=== PATIENT | female | born 1990 | race Caucasian/White ===

== ENCOUNTER 2020-03-24 23:40 | Inpatient (IN) | payer MEDICAID ==
[2020-03-25] MEDS ORDERED: Nalbuphine 10 MG/ML Syringe IVPUSH PRN (00:20)
[2020-03-25] MEDS ORDERED: Ondansetron 4 MG/2 ML SDV IVPUSH PRN (00:20)
[2020-03-25] MEDS ORDERED: Ampicillin 2 GM in Sodium Chloride 0.9% 100 ML IV ONE (00:20)
[2020-03-25] MEDS ORDERED: Sodium Chloride 0.9% 10 ML Syringe FLUSH PRN (00:20)
[2020-03-25] MEDS ORDERED: Oxytocin/Lactated Ringers 10 UNIT/1,000 ML BAG IV SCH ×2 (00:30)
[2020-03-25] MEDS: Lactated Ringers 1,000 ML IV SCH ×2 (01:05→11:18)
[2020-03-25] MEDS: Ampicillin 1 GM in Sodium Chloride 0.9% 100 ML IV SCH ×4 (05:02→18:05)
--- NOTE | 2020-03-25 07:55 | PCM.PREANE ---
Preanesthetic Assessment - Procedure Proposed Procedure: kash - Anesthesia/Transfusion/Family Hx Anesthesia History: Prior Anesthesia Without Reaction Family History of Anesthesia Reaction: No Transfusion History: No Prior Transfusion(s) - Review of Systems General: No Symptoms Pulmonary: No Symptoms Cardiovascular: No Symptoms Gastrointestinal: No Symptoms Neurological: No Symptoms Other: Reports: None - Physical Assessment Vital Signs: Last Vital Signs Temp 98.6 F 03/24/20 23:59 Pulse Resp 16 03/24/20 23:59 BP 129/73 03/24/20 23:59 Pulse Ox 99 03/24/20 23:59 Height: 5 ft 4 in Weight: 78.018 kg ASA Class: 2 Mental Status: Alert & Oriented x3 Airway Class: Mallampati = 1 Dentition: Reports: Normal Dentition Thyro-Mental Finger Breadths: 3 Mouth Opening Finger Breadths: 3 ROM/Head Extension: Full Lungs: Clear to Auscultation, Normal Respiratory Effort Cardiovascular: Regular Rate, Regular Rhythm - Lab Values: Laboratory Last Values WBC 8.45 K/mm3 (3.98-10.04) 03/25/20 00:35 RBC 3.37 M/mm3 (3.98-5.22) L 03/25/20 00:35 Hgb 9.9 gm/dl (11.2-15.7) L 03/25/20 00:35 Hct 30.4 % (34.1-44.9) L 03/25/20 00:35 MCV 90.2 fl (79.4-94.8) 03/25/20 00:35 MCH 29.4 pg (25.6-32.2) 03/25/20 00:35 MCHC 32.6 g/dl (32.2-35.5) 03/25/20 00:35 RDW Std Deviation 40.7 fL (36.4-46.3) 03/25/20 00:35 Plt Count 257 K/mm3 (182-369) 03/25/20 00:35 MPV 9.3 fl (9.4-12.3) L 03/25/20 00:35 Urine Color Yellow (Yellow) 03/25/20 00:05 Urine Appearance Clear (Clear) 03/25/20 00:05 Urine pH 7.0 (5.0-8.0) 03/25/20 00:05 Ur Specific [place] 1.015 (1.005-1.030) 03/25/20 00:05 Urine Protein Trace (Negative) H 03/25/20 00:05 Urine Glucose (UA) Negative (Negative) 03/25/20 00:05 Urine Ketones Negative (Negative) 03/25/20 00:05 Urine Occult Blood Trace-lysed (Negative) H 03/25/20 00:05 Urine Nitrite Negative (Negative) 03/25/20 00:05 Urine Bilirubin Negative (Negative) 03/25/20 00:05 Urine Urobilinogen 0.2 (0.2-1.0) 03/25/20 00:05 Ur Leukocyte Esterase 1+ (Negative) H 03/25/20 00:05 Urine RBC 0-5 /hpf (0-5) 03/25/20 00:05 Urine WBC 5-10 /hpf (0-5) H 03/25/20 00:05 Ur Squamous Epith Cells 10-20 /hpf (0-5) H 03/25/20 00:05 Urine Bacteria Few /hpf (FEW) 03/25/20 00:05 Urine Mucus Rare /hpf (FEW) 03/25/20 00:05 Membrane Rupture Positive H 03/25/20 00:05 Blood Type A POSITIVE 03/25/20 00:35 Gel Antibody Screen Negative 03/25/20 00:35 - Allergies Allergies/Adverse Reactions: Allergies Allergy/AdvReac Type Severity Reaction Status Date / Time No Known Allergies Allergy Verified 03/24/20 23:57 - Blood Blood Available: No - Acknowledgements Anesthesia Type Planned: Epidural Pt an Appropriate Candidate for the Planned Anesthesia: Yes Alternatives and Risks of Anesthesia Discussed w Pt/Guardian: Yes Pt/Guardian Understands and Agrees with Anesthesia Plan: Yes PreAnesthesia Questionnaire HEENT History: Reports: None Cardiovascular History: Reports: None Respiratory History: Reports: None Gastrointestinal History: Reports: None Genitourinary History: Reports: None HEAD LOADER History: Reports: None : 1 Para: 0 Musculoskeletal History: Reports: None Neurological History: Reports: None Psychiatric History: Reports: None Endocrine/Metabolic History: Reports: None Hematologic History: Reports: None Immunologic History: Reports: None Oncologic (Cancer) History: Reports: None Dermatologic History: Reports: None - Infectious Disease History Infectious Disease History: Reports: Chicken Pox Other Infectious Disease History: Pt had chicken pox as a child - Past Surgical History Head Surgeries/Procedures: Reports: None HEENT Surgical History: Reports: Oral Surgery Female Surgical History: Reports: Cervical Conization - SUBSTANCE USE Smoking Status *Q: Former Smoker (quit 9 months ago) Tobacco Use Within Last Twelve Months: Cigarettes Second Hand Smoke Exposure: No Days Per Week of Alcohol Use: 0 Recreational Drug Use History: No - HOME MEDS Home Medications: Home Meds Pnv No.95/Ferrous Fum/Folic AC [ Vitamin Tablet] 1 tab PO DAILY 03/25/20 [History] - CURRENT (IN HOUSE) MEDS Current Meds: Current Medications Lactated Ringer's (Ringers, Lactated) 1,000 mls @ 100 mls/hr IV ASDIRECTED MARIE Last Admin: 03/25/20 01:05 Dose: 100 mls/hr Documented by: Ampicillin Sodium 1 gm/ Sodium (Chloride) 100 mls @ 200 mls/hr IV Q4H MARIE Last Admin: 03/25/20 05:02 Dose: 200 mls/hr Documented by: Oxytocin/Lactated Ringer's (Pitocin In Lr 10 Units/1,000 Ml) 10 unit in 1,000 mls @ 100 mls/hr IV .CONTINUOUS MARIE Oxytocin/Lactated Ringer's (Pitocin In Lr 10 Units/1,000 Ml) 10 unit in 1,000 mls @ 12 mls/hr IV TITRATE MARIE; Protocol Last Titration: 03/25/20 07:14 Dose: 16 munits/min, 96 mls/hr Documented by: Nalbuphine HCl (Nubain) 10 mg IVPUSH Q2H PRN PRN Reason: Pain Last Admin: 03/25/20 03:41 Dose: 10 mg Documented by: Ondansetron HCl (Zofran) 4 mg IVPUSH Q4H PRN PRN Reason: Nausea/Vomiting Sodium Chloride (Saline Flush) 10 ml FLUSH ASDIRECTED PRN PRN Reason: Keep Vein Open Discontinued Medications Ampicillin Sodium 2 gm/ Sodium (Chloride) 100 mls @ 200 mls/hr IV ONETIME ONE Stop: 03/25/20 00:49 Last Admin: 03/25/20 01:05 Dose: 200 mls/hr Documented by:
[2020-03-25] MEDS ORDERED: fentaNYL 100 MCG/2 ML SDV EPIDUR PRN (08:01)
[2020-03-25] MEDS ORDERED: ePHEDrine 50 MG/ML SDV IVPUSH PRN (08:01)
[2020-03-25] MEDS ORDERED: diphenhydrAMINE 50 MG/ML SDV IVPUSH PRN (08:01)
--- NOTE | 2020-03-25 08:54 | PCM.LDHP ---
L&D History of Present Illness - General Date of Service: 03/24/20 Admit Problem/Dx: Patient Status Order with Admit Dx/Problem 03/24/20 23:57 Patient Status [ADT] Routine 03/25/20 03:03 Admission Status [Patient Status] [ADT] Routine Admission Diagnosis/Problem Admission Diagnosis/Problem Source of Information: Patient History Limitations: Reports: No Limitations - History of Present Illness Introduction:: 30-year-old 1 para 0 at 36 weeks 3 days preventive presents complaining of rupture [id number] 1 para 0 at 36 weeks 3 days. Presents complaining of rupture of membranes at 10 PM. AmniSure found to be positive and patient was admittedAmnio sure found to be positive and patient was admitted Associated Symptoms: Reports: vaginal fluid - Related Data Allergies/Adverse Reactions: Allergies Allergy/AdvReac Type Severity Reaction Status Date / Time No Known Allergies Allergy Verified 03/24/20 23:57 Home Medications: Home Meds Pnv No.95/Ferrous Fum/Folic AC [ Vitamin Tablet] 1 tab PO DAILY 03/25/20 [History] Past Medical History HEENT History: Reports: None Cardiovascular History: Reports: None Respiratory History: Reports: None Gastrointestinal History: Reports: None Genitourinary History: Reports: None MILL HAND History: Reports: None Musculoskeletal History: Reports: None Neurological History: Reports: None Psychiatric History: Reports: None Endocrine/Metabolic History: Reports: None Hematologic History: Reports: None Immunologic History: Reports: None Oncologic (Cancer) History: Reports: None Dermatologic History: Reports: None - Infectious Disease History Infectious Disease History: Reports: Chicken Pox Other Infectious Disease History: Pt had chicken pox as a child - Past Surgical History Head Surgeries/Procedures: Reports: None HEENT Surgical History: Reports: Oral Surgery Female Surgical History: Reports: Cervical Conization Social & Family History - Family History Family Medical History: Noncontributory - Tobacco Use Smoking Status *Q: Former Smoker (quit 9 months ago) Second Hand Smoke Exposure: No - Alcohol Use Days Per Week of Alcohol Use: 0 - Recreational Drug Use Recreational Drug Use: No H&P Review of Systems - Review of Systems: Review Of Systems: See Below General: Reports: No Symptoms HEENT: Reports: No Symptoms Pulmonary: Reports: No Symptoms Cardiovascular: Reports: No Symptoms Gastrointestinal: Reports: No Symptoms Genitourinary: Reports: No Symptoms Musculoskeletal: Reports: No Symptoms Skin: Reports: No Symptoms Psychiatric: Reports: No Symptoms Neurological: Reports: No Symptoms Hematologic/Lymphatic: Reports: No Symptoms Immunologic: Reports: No Symptoms L&D Exam - Exam Exam: See Below - Vital Signs Vital Signs: Last Vital Signs Temp 37.0 C 03/24/20 23:59 Pulse Resp 16 03/24/20 23:59 BP 129/73 03/24/20 23:59 Pulse Ox 99 03/24/20 23:59 Weight: 78.018 kg - OB Specific Contraction Intensity: Irritability Movement: Active Heart Tones: Present Heart Rate (FHR) Variability: Moderate (6-25 bmp) Presentation: Vertex - Ann Score Ann Score Cervix Position: Posterior Ann Score Consistency: Soft Ann Score Effacement: >80% Ann Score Dilation: 3-4 cm Ann Score 's Station: -3 Ann Score Total: 7 - Exam General: Alert, Oriented HEENT: PERRLA, Conjunctiva Clear, EACs Clear, EOMI, Hearing Intact, Mucosa Moist & [place], Nares Patent, Normal Nasal Septum, Posterior Pharynx Clear, TMs Clear Neck: Supple, Trachea Midline Lungs: Clear to Auscultation, Normal Respiratory Effort Cardiovascular: Regular Rate, Regular Rhythm GI/Abdominal Exam: Normal Bowel Sounds, Soft, Non-Tender, No Organomegaly, No Distention, No Abnormal Bruit, No Mass, Pelvis Stable Genitourinary: Normal external exam Back Exam: Normal Inspection, Full Range of Motion Extremities: Normal Inspection, Normal Range of Motion, Non-Tender, No Pedal Edema, Normal Capillary Refill Skin: Warm, Dry, Intact Neurological: Cranial Nerves Intact, Reflexes Equal Bilateral Psychiatric: Alert, Normal Affect, Normal Mood - Patient Data Lab Results Last 24 hrs: Laboratory Results - last 24 hr 03/25/20 03/25/20 03/25/20 Range/Units 00:05 00:05 00:35 WBC 8.45 (3.98-10.04) K/mm3 RBC 3.37 L (3.98-5.22) M/mm3 Hgb 9.9 L (11.2-15.7) gm/dl Hct 30.4 L (34.1-44.9) % MCV 90.2 (79.4-94.8) fl MCH 29.4 (25.6-32.2) pg MCHC 32.6 (32.2-35.5) g/dl RDW Std Deviation 40.7 (36.4-46.3) fL Plt Count 257 (182-369) K/mm3 MPV 9.3 L (9.4-12.3) fl Urine Color Yellow (Yellow) Urine Appearance Clear (Clear) Urine pH 7.0 (5.0-8.0) Ur Specific [place] 1.015 (1.005-1.030) Urine Protein Trace H (Negative) Urine Glucose (UA) Negative (Negative) Urine Ketones Negative (Negative) Urine Occult Blood Trace-lysed H (Negative) Urine Nitrite Negative (Negative) Urine Bilirubin Negative (Negative) Urine Urobilinogen 0.2 (0.2-1.0) Ur Leukocyte Esterase 1+ H (Negative) Urine RBC 0-5 (0-5) /hpf Urine WBC 5-10 H (0-5) /hpf Ur Squamous Epith Cells 10-20 H (0-5) /hpf Urine Bacteria Few (FEW) /hpf Urine Mucus Rare (FEW) /hpf Membrane Rupture Positive H Blood Type Gel Antibody Screen 03/25/20 Range/Units 00:35 WBC (3.98-10.04) K/mm3 RBC (3.98-5.22) M/mm3 Hgb (11.2-15.7) gm/dl Hct (34.1-44.9) % MCV (79.4-94.8) fl MCH (25.6-32.2) pg MCHC (32.2-35.5) g/dl RDW Std Deviation (36.4-46.3) fL Plt Count (182-369) K/mm3 MPV (9.4-12.3) fl Urine Color (Yellow) Urine Appearance (Clear) Urine pH (5.0-8.0) Ur Specific [place] (1.005-1.030) Urine Protein (Negative) Urine Glucose (UA) (Negative) Urine Ketones (Negative) Urine Occult Blood (Negative) Urine Nitrite (Negative) Urine Bilirubin (Negative) Urine Urobilinogen (0.2-1.0) Ur Leukocyte Esterase (Negative) Urine RBC (0-5) /hpf Urine WBC (0-5) /hpf Ur Squamous Epith Cells (0-5) /hpf Urine Bacteria (FEW) /hpf Urine Mucus (FEW) /hpf Membrane Rupture Blood Type A POSITIVE Gel Antibody Screen Negative Result Diagrams: 03/25/20 00:35 Problem List Initiated/Reviewed/Updated: Yes Orders Last 24hrs: Active Orders 24 hr Category Date Time Status Admission Status [Patient Status] [ADT] Routine ADT 03/25/20 03:03 Active Patient Status [ADT] Routine ADT 03/24/20 23:57 Active Activity as Tolerated [RC] PFP Care 03/25/20 00:20 Active Communication Order [RC] ASDIRECTED Care 03/25/20 00:20 Active Heart Tones [RC] ASDIRECTED Care 03/25/20 00:21 Active Non Stress Test [RC] PER UNIT ROUTINE Care 03/24/20 23:57 Active Non Stress Test [RC] PER UNIT ROUTINE Care 03/25/20 00:20 Active Notify Provider [RC] ASDIRECTED Care 03/25/20 08:01 Active Notify Provider [RC] PFP Care 03/25/20 00:20 Active Notify Provider [RC] PRN Care 03/25/20 00:20 Active Peripheral IV Care [RC] . DIRECTED Care 03/25/20 00:21 Active Vital Signs [RC] 09,15,21,03 Care 03/24/20 23:57 Active Vital Signs [RC] PER UNIT ROUTINE Care 03/25/20 00:20 Active Regular Diet [DIET] Diet 03/25/20 Breakfast Active GROUP B STREP BY PCR [MOLEC] Stat Lab 03/25/20 00:50 Received PATIENT RETYPE [BBK] Routine Lab 03/25/20 01:23 Ordered RAPID PLASMA REAGIN,RPR [CHEM] Routine Lab 03/25/20 00:35 Received Ampicillin 1 gm Med 03/25/20 05:00 Active Sodium Chloride 0.9% [Normal Saline] 100 ml IV Q4H Bupivacaine/fentaNYL/NS [fentaNYL/Bupivacaine/NS 2 MCG- Med 03/25/20 08:01 Active 0.125% 100 ML] 100 ml EPIDUR ASDIRECTED PRN Lactated Ringers [Ringers, Lactated] 1,000 ml Med 03/25/20 00:30 Active IV ASDIRECTED Nalbuphine [Nubain] Med 03/25/20 00:20 Active 10 mg IVPUSH Q2H PRN Ondansetron [Zofran] Med 03/25/20 00:20 Active 4 mg IVPUSH Q4H PRN Oxytocin/Lactated Ringers [Pitocin in LR 10 Units/1,000 Med 03/25/20 00:30 Active ML] 10 unit in 1,000 ml IV .CONTINUOUS Oxytocin/Lactated Ringers [Pitocin in LR 10 Units/1,000 Med 03/25/20 00:30 Active ML] 10 unit in 1,000 ml IV TITRATE Sodium Chloride 0.9% [Saline Flush] Med 03/25/20 00:20 Active 10 ml FLUSH ASDIRECTED PRN diphenhydrAMINE [Benadryl] Med 03/25/20 08:01 Active 25 mg IVPUSH Q6H PRN ePHEDrine [ePHEDrine sulfate] Med 03/25/20 08:01 Active 5 mg IVPUSH ASDIRECTED PRN fentaNYL [Sublimaze] Med 03/25/20 08:01 Active 100 mcg EPIDUR Q3H PRN Electronic Heart Tones Ext w TOCO [WOMSER] Oth 03/25/20 00:20 Ordered Routine Electronic Heart Tones Internal [WOMSER] Per Unit Oth 03/25/20 00:20 Ordered Routine Peripheral IV Insertion Adult [OM.PC] Routine Oth 03/25/20 00:20 Ordered Resuscitation Status Routine Resus Stat 03/24/20 23:57 Ordered Medication Orders Diphenhydramine HCl (Benadryl) 25 mg IVPUSH Q6H PRN PRN Reason: pruritis Ephedrine Sulfate (Ephedrine Sulfate) 5 mg IVPUSH ASDIRECTED PRN PRN Reason: Hypotension Fentanyl (Sublimaze) 100 mcg EPIDUR Q3H PRN PRN Reason: Pain Fentanyl/Bupivacaine HCl (Fentanyl/Bupivacaine/Ns 2 Mcg-0.125% 100 Ml) 100 ml EPIDUR ASDIRECTED PRN PRN Reason: Pain Lactated Ringer's (Ringers, Lactated) 1,000 mls @ 100 mls/hr IV ASDIRECTED [facility] Last Admin: 03/25/20 01:05 Dose: 100 mls/hr Documented by: CRONCHE Ampicillin Sodium 1 gm/ Sodium (Chloride) 100 mls @ 200 mls/hr IV Q4H [facility] Last Admin: 03/25/20 05:02 Dose: 200 mls/hr Documented by: VILMA Oxytocin/Lactated Ringer's (Pitocin In Lr 10 Units/1,000 Ml) 10 unit in 1,000 mls @ 100 mls/hr IV .CONTINUOUS MARIE Oxytocin/Lactated Ringer's (Pitocin In Lr 10 Units/1,000 Ml) 10 unit in 1,000 mls @ 12 mls/hr IV TITRATE MARIE; Protocol Last Titration: 03/25/20 08:09 Dose: 108 munits/min, 648 mls/hr Documented by: Titration: 03/25/20 07:14 Dose: 16 munits/min, 96 mls/hr Documented by: Titration: 03/25/20 06:30 Dose: 14 munits/min, 84 mls/hr Documented by: Titration: 03/25/20 05:27 Dose: 12 munits/min, 72 mls/hr Documented by: Titration: 03/25/20 04:00 Dose: 10 munits/min, 60 mls/hr Documented by: Titration: 03/25/20 03:30 Dose: 8 munits/min, 48 mls/hr Documented by: Titration: 03/25/20 03:00 Dose: 6 munits/min, 36 mls/hr Documented by: Titration: 03/25/20 01:45 Dose: 4 munits/min, 24 mls/hr Documented by: Admin: 03/25/20 01:15 Dose: 2 munits/min, 12 mls/hr Documented by: VILMA Nalbuphine HCl (Nubain) 10 mg IVPUSH Q2H PRN PRN Reason: Pain Last Admin: 03/25/20 03:41 Dose: 10 mg Documented by: VILMA Ondansetron HCl (Zofran) 4 mg IVPUSH Q4H PRN PRN Reason: Nausea/Vomiting Sodium Chloride (Saline Flush) 10 ml FLUSH ASDIRECTED PRN PRN Reason: Keep Vein Open Assessment/Plan Comment:: rupture of membranes -36 weeks, will augment with Pitocin -group B strep pending treat with antibiotics given status until this returns -Anesthesia per patient preference
[2020-03-25] MEDS: Oxytocin/Lactated Ringers 20 UNIT/1,000 ML BAG IV SCH ×2 (10:10→22:37)
[2020-03-25] MEDS: Bupivacaine/fentaNYL/NS 100 ML Bag EPIDUR PRN ×2 (11:17→18:04)
--- NOTE | 2020-03-25 21:01 | PCM.SN.2 ---
- Free Text/Narrative Note: Stage I - Patient presented with SROM clear fluid at 36w. Augmented with pitocin. Antibiotics for unknown GBS. Progressed to complete with overall reassuring heart tones. Stage II - of viable male. Weight pending. APGARS 8/9 at 2026. Head delivered in controlled manner over intact perineum. Body and shoulders atraumatically. To maternal abdomen. Cord clamped and cut. Stage III - of intact placenta. 3v cord. 2nd degree laceration repaired with 3-0 vicryl. EBL 300. Bladder emptied.
[2020-03-25] MEDS ORDERED: Witch Hazel Medicated Pads 40/Jar TOP PRN (21:27)
[2020-03-25] MEDS ORDERED: Benzocaine/Menthol 20%-0.5% Spray 56 GM Canister TOP PRN (21:27)
[2020-03-25] MEDS ORDERED: Docusate Sodium 100 MG Cap PO PRN (21:27)
[2020-03-25] MEDS: Ibuprofen 600 MG Tab PO PRN (22:39)
[2020-03-26] MEDS ORDERED: Bupivacaine 0.25% 10 ML SDV ONE
--- NOTE | 2020-03-26 07:30 | PCM48HPAN ---
Post Anesthesia Note - EVALUATION WITHIN 48HRS OF ANESTHETIC Vital Signs in Normal Range: Yes Patient Participated in Evaluation: Yes Respiratory Function Stable: Yes Airway Patent: Yes Cardiovascular Function Stable: Yes Hydration Status Stable: Yes Pain Control Satisfactory: Yes Nausea and Vomiting Control Satisfactory: Yes Mental Status Recovered: Yes Vital Signs: Last Vital Signs Temp 36.7 C 03/26/20 03:16 Pulse 75 03/26/20 03:16 Resp 13 03/26/20 03:16 BP 112/78 03/26/20 03:16 Pulse Ox 98 03/26/20 03:16
--- NOTE | 2020-03-26 07:57 | PCM.PNPP ---
- General Info Date of Service: 03/26/20 Functional Status: Reports: Pain Controlled - Review of Systems General: Reports: No Symptoms HEENT: Reports: No Symptoms Pulmonary: Reports: No Symptoms Cardiovascular: Reports: No Symptoms Gastrointestinal: Reports: No Symptoms Genitourinary: Reports: No Symptoms Musculoskeletal: Reports: No Symptoms Skin: Reports: No Symptoms Neurological: Reports: No Symptoms Psychiatric: Reports: No Symptoms - General Info Date of Service: 03/26/20 - Patient Data Vital Signs - Most Recent: Last Vital Signs Temp 36.7 C 03/26/20 03:16 Pulse 75 03/26/20 03:16 Resp 13 03/26/20 03:16 BP 112/78 03/26/20 03:16 Pulse Ox 98 03/26/20 03:16 Weight - Most Recent: 78.018 kg I&O - Last 24 Hours: Intake & Output 03/25/20 03/26/20 03/26/20 22:59 06:59 14:59 Intake Total 4000 Output Total 2800 Balance -2800 4000 Lab Results - Last 24 Hours: Laboratory Results - last 24 hr 03/25/20 03/25/20 Range/Units 00:35 00:50 RPR Non-reactive (NONREACTIVE) Group B Strep (PCR) Negative (NEGATIVE) Med Orders - Current: Current Medications Acetaminophen (Tylenol) 650 mg PO Q4H PRN PRN Reason: mild pain or fever Benzocaine/Menthol (Dermoplast Pain Relief Barney) 0 gm TOP ASDIRECTED PRN PRN Reason: Perineal Comfort Measure Last Admin: 03/25/20 22:40 Dose: 1 canister Documented by: Docusate Sodium (Colace) 100 mg PO BID PRN PRN Reason: Constipation Ibuprofen (Motrin) 600 mg PO Q6H PRN PRN Reason: Mild pain or fever Last Admin: 03/25/20 22:39 Dose: 600 mg Documented by: Myra Tang (Lauro) 1 pad TOP ASDIRECTED PRN PRN Reason: Pain Last Admin: 03/25/20 22:40 Dose: 1 tub Documented by: Discontinued Medications Diphenhydramine HCl (Benadryl) 25 mg IVPUSH Q6H PRN PRN Reason: pruritis Ephedrine Sulfate (Ephedrine Sulfate) 5 mg IVPUSH ASDIRECTED PRN PRN Reason: Hypotension Fentanyl (Sublimaze) 100 mcg EPIDUR Q3H PRN PRN Reason: Pain Last Admin: 03/25/20 11:17 Dose: 100 mcg Documented by: Fentanyl/Bupivacaine HCl (Fentanyl/Bupivacaine/Ns 2 Mcg-0.125% 100 Ml) 100 ml EPIDUR ASDIRECTED PRN PRN Reason: Pain Last Admin: 03/25/20 18:04 Dose: 100 ml Documented by: Lactated Ringer's (Ringers, Lactated) 1,000 mls @ 100 mls/hr IV ASDIRECTED MARIE Last Admin: 03/25/20 11:18 Dose: 100 mls/hr Documented by: Ampicillin Sodium 2 gm/ Sodium (Chloride) 100 mls @ 200 mls/hr IV ONETIME ONE Stop: 03/25/20 00:49 Last Admin: 03/25/20 01:05 Dose: 200 mls/hr Documented by: Ampicillin Sodium 1 gm/ Sodium (Chloride) 100 mls @ 200 mls/hr IV Q4H MARIE Last Admin: 03/25/20 18:05 Dose: 200 mls/hr Documented by: Oxytocin/Lactated Ringer's (Pitocin In Lr 10 Units/1,000 Ml) 10 unit in 1,000 mls @ 100 mls/hr IV .CONTINUOUS MARIE Oxytocin/Lactated Ringer's (Pitocin In Lr 10 Units/1,000 Ml) 10 unit in 1,000 mls @ 12 mls/hr IV TITRATE MARIE; Protocol Last Titration: 03/25/20 13:29 Dose: Infused Documented by: Oxytocin/Lactated Ringer's (Pitocin In Lr 20 Units/1,000 Ml) 20 unit in 1,000 mls @ 60 mls/hr IV TITRATE MARIE; Protocol Last Admin: 03/25/20 22:37 Dose: 60 mls/hr Documented by: Nalbuphine HCl (Nubain) 10 mg IVPUSH Q2H PRN PRN Reason: Pain Last Admin: 03/25/20 03:41 Dose: 10 mg Documented by: Ondansetron HCl (Zofran) 4 mg IVPUSH Q4H PRN PRN Reason: Nausea/Vomiting Sodium Chloride (Saline Flush) 10 ml FLUSH ASDIRECTED PRN PRN Reason: Keep Vein Open - Interaction Infant Disposition, : Bruce in Room with Family Support Person: Significant Other - Recovery Exam Fundal Tone: Firm Fundal Level: 1 Fingerbreadths Below Umbilicus Fundal Placement: Midline Lochia Amount: Small Lochia Color: Rubra/Red Perineum Description: Edematous, Other (see below) Other Perinuem Description: 2nd degree repaired Bladder Status: Voiding Urinary Elimination: Voided - Exam General: Alert, Oriented HEENT: Pupils Equal Neck: Supple Lungs: Clear to Auscultation, Normal Respiratory Effort Cardiovascular: Regular Rate, Regular Rhythm GI/Abdominal Exam: Normal Bowel Sounds, Soft, Non-Tender, No Organomegaly, No Distention, No Abnormal Bruit, No Mass, Pelvis Stable Extremities: Normal Inspection, Normal Range of Motion, Non-Tender, No Pedal Edema, Normal Capillary Refill Skin: Warm, Dry, Intact Neurological: No New Focal Deficit Psy/Mental Status: Alert, Normal Affect, Normal Mood - Problem List Review Problem List Initiated/Reviewed/Updated: Yes - My Orders Last 24 Hours: My Active Orders 03/25/20 Breakfast Regular Diet [DIET] 03/25/20 21:27 Acetaminophen [Tylenol] 650 mg PO Q4H PRN Benzocaine/Menthol [Dermoplast Pain Relief Barney] See Dose Instructions TOP ASDIRECTED PRN Docusate Sodium [Colace] 100 mg PO BID PRN Ibuprofen [Motrin] 600 mg PO Q6H PRN witch Kiana [Tucks] 1 pad TOP ASDIRECTED PRN Heat Therapy [OM.PC] PRN 03/25/20 21:27 Activity as Tolerated [RC] PER UNIT ROUTINE Vital Signs [RC] 21,03,09,15 Assess Lochia [WOMSER] Per Unit Routine Assess Uterine Involution [WOMSER] Per Unit Routine Breast Pump [WOMSER] Per Unit Routine Medication Administration Instruction [OM.PC] Routine Perineal Care [OM.PC] Per Unit Routine Sitz Bath [OM.PC] Per Unit Routine 03/26/20 21:27 Heat Therapy [OM.PC] PRN - Assessment Assessment:: PPD1 Doing great. Probable discharge tomorrow - Plan Plan:: rupture of membranes -36 weeks, will augment with Pitocin -group B strep pending treat with antibiotics given status until this returns -Anesthesia per patient preference
[2020-03-26] MEDS: Ibuprofen 600 MG Tab PO PRN ×3 (08:21→23:44)
[2020-03-26] MEDS: Acetaminophen 325 MG Tab PO PRN ×2 (12:37→21:39)
[2020-03-26] MEDS: Ampicillin 1 GM in Sodium Chloride 0.9% 100 ML IV SCH (19:56)
--- NOTE | 2020-03-27 06:52 | PCM.DCSUM1 ---
Discharge Summary - Hospital Course Diagnosis: Stroke: No - Discharge Data Discharge Date: 03/27/20 Discharge Disposition: Home, Self-Care 01 Condition: Good - Referral to Home Health Primary Care Physician: Elba Russell MD - Patient Summary/Data Hospital Course: Admitted for rupture of membranes. Uncomplicated - Patient Instructions Diet: Usual Diet as Tolerated Activity: No Strenuous Activities Activity, Other: pelvic rest Driving: May Drive Today Showering/Bathing: May Shower Notify Provider of: Fever, Increased Pain, Swelling and Redness, Drainage, N ausea and/or Vomiting - Discharge Plan *PRESCRIPTION DRUG MONITORING PROGRAM REVIEWED*: No *COPY OF PRESCRIPTION DRUG MONITORING REPORT IN PATIENT PADMINI: No Home Medications: Home Meds Pnv No.95/Ferrous Fum/Folic AC [ Vitamin Tablet] 1 tab PO DAILY 03/25/20 [History] Referrals: Elba Russell MD [Primary Care Provider] - (2 weeks) - Discharge Summary/Plan Comment DC Time >30 min.: No - General Info Date of Service: 03/27/20 Functional Status: Reports: Pain Controlled - Review of Systems General: Reports: No Symptoms HEENT: Reports: No Symptoms Pulmonary: Reports: No Symptoms Cardiovascular: Reports: No Symptoms Gastrointestinal: Reports: No Symptoms Genitourinary: Reports: No Symptoms Musculoskeletal: Reports: No Symptoms Skin: Reports: No Symptoms Neurological: Reports: No Symptoms Psychiatric: Reports: No Symptoms - Patient Data Vitals - Most Recent: Last Vital Signs Temp 36.4 C 03/27/20 02:40 Pulse 65 03/27/20 02:40 Resp 15 03/27/20 02:40 BP 121/69 03/27/20 02:40 Pulse Ox 97 03/27/20 02:40 Weight - Most Recent: 78.018 kg Med Orders - Current: Current Medications Acetaminophen (Tylenol) 650 mg PO Q4H PRN PRN Reason: mild pain or fever Last Admin: 03/26/20 21:39 Dose: 650 mg Documented by: Benzocaine/Menthol (Dermoplast Pain Relief [place]) 0 gm TOP ASDIRECTED PRN PRN Reason: Perineal Comfort Measure Last Admin: 03/25/20 22:40 Dose: 1 canister Documented by: Docusate Sodium (Colace) 100 mg PO BID PRN PRN Reason: Constipation Last Admin: 03/26/20 21:40 Dose: 100 mg Documented by: Ibuprofen (Motrin) 600 mg PO Q6H PRN PRN Reason: Mild pain or fever Last Admin: 03/26/20 23:44 Dose: 600 mg Documented by: Myra Tang (Lauro) 1 pad TOP ASDIRECTED PRN PRN Reason: Pain Last Admin: 03/25/20 22:40 Dose: 1 tub Documented by: Discontinued Medications Bupivacaine HCl (Sensorcaine-Mpf 0.25%) 10 ml .ROUTE .STK-MED ONE Stop: 03/26/20 00:01 Diphenhydramine HCl (Benadryl) 25 mg IVPUSH Q6H PRN PRN Reason: pruritis Ephedrine Sulfate (Ephedrine Sulfate) 5 mg IVPUSH ASDIRECTED PRN PRN Reason: Hypotension Fentanyl (Sublimaze) 100 mcg EPIDUR Q3H PRN PRN Reason: Pain Last Admin: 03/25/20 11:17 Dose: 100 mcg Documented by: Fentanyl/Bupivacaine HCl (Fentanyl/Bupivacaine/Ns 2 Mcg-0.125% 100 Ml) 100 ml EPIDUR ASDIRECTED PRN PRN Reason: Pain Last Admin: 03/25/20 18:04 Dose: 100 ml Documented by: Lactated Ringer's (Ringers, Lactated) 1,000 mls @ 100 mls/hr IV ASDIRECTED MARIE Last Admin: 03/25/20 11:18 Dose: 100 mls/hr Documented by: Ampicillin Sodium 2 gm/ Sodium (Chloride) 100 mls @ 200 mls/hr IV ONETIME ONE Stop: 03/25/20 00:49 Last Admin: 03/25/20 01:05 Dose: 200 mls/hr Documented by: Ampicillin Sodium 1 gm/ Sodium (Chloride) 100 mls @ 200 mls/hr IV Q4H MARIE Last Admin: 03/26/20 19:56 Dose: Not Given Documented by: Oxytocin/Lactated Ringer's (Pitocin In Lr 10 Units/1,000 Ml) 10 unit in 1,000 mls @ 100 mls/hr IV .CONTINUOUS MARIE Oxytocin/Lactated Ringer's (Pitocin In Lr 10 Units/1,000 Ml) 10 unit in 1,000 mls @ 12 mls/hr IV TITRATE MARIE; Protocol Last Titration: 03/25/20 13:29 Dose: Infused Documented by: Oxytocin/Lactated Ringer's (Pitocin In Lr 20 Units/1,000 Ml) 20 unit in 1,000 mls @ 60 mls/hr IV TITRATE MARIE; Protocol Last Admin: 03/25/20 22:37 Dose: 60 mls/hr Documented by: Nalbuphine HCl (Nubain) 10 mg IVPUSH Q2H PRN PRN Reason: Pain Last Admin: 03/25/20 03:41 Dose: 10 mg Documented by: Ondansetron HCl (Zofran) 4 mg IVPUSH Q4H PRN PRN Reason: Nausea/Vomiting Sodium Chloride (Saline Flush) 10 ml FLUSH ASDIRECTED PRN PRN Reason: Keep Vein Open - Exam General: Reports: Alert, Oriented HEENT: Reports: Pupils Equal, Pupils Reactive, EOMI, Mucous Membr. Moist/[place] Neck: Reports: Supple Lungs: Reports: Clear to Auscultation, Normal Respiratory Effort Cardiovascular: Reports: Regular Rate, Regular Rhythm GI/Abdominal Exam: Normal Bowel Sounds, Soft, Non-Tender, No Organomegaly, No Distention, No Abnormal Bruit, No Mass, Pelvis Stable Rectal (Female) Exam: Normal Exam, Normal Rectal Tone Back Exam: Reports: Normal Inspection, Full Range of Motion Extremities: Normal Inspection, Normal Range of Motion, Non-Tender, No Pedal Edema, Normal Capillary Refill Skin: Reports: Warm, Dry, Intact Wound/Incisions: Reports: Healing Well Neurological: Reports: No New Focal Deficit Psy/Mental Status: Reports: Alert, Normal Affect, Normal Mood
[2020-03-27] MEDS: Ibuprofen 600 MG Tab PO PRN ×2 (06:54→13:26)
[2020-03-27] MEDS: Acetaminophen 325 MG Tab PO PRN (10:22)
== END 2020-03-27 13:45 | disposition home or self-care (01) | DRG 807 ==
LOC: JD.OBCHECK 23:40 → JD.OB 23:40 → JD.OBCHECK 03-25 00:29 → JD.OB 03-25 00:30 → OBSVTOIN 03-25 00:30 → JD.OB 03-25 20:28
PROVIDERS: ADMIT Obstetrics & Gynecology; ATTEND Obstetrics & Gynecology
PROC: 10E0XZZ Delivery of Products of Conception, External Approach (ICD-10-PCS; principal; 2020-03-25)
PROC: 0KQM0ZZ Repair Perineum Muscle, Open Approach (ICD-10-PCS; 2020-03-25)
DX: O42.013 Preterm premature rupture of membranes, onset of labor within 24 hours of rupture, third trimester (principal); Z37.0 Single live birth; Z3A.36 36 weeks gestation of pregnancy
CPT/HCPCS: 01967; 36415; 51701; 51702; 59025; 59409; 81001; 84112; 85027; 86592; 86850; 86900; 86901; 87653; A9270-GY; J0290; J2300; J2590; J3010; J3490; J7050; J7120